=== PATIENT | male | born 1960 | race African-American/Black ===

== ENCOUNTER 2018-11-28 18:19 | Emergency (ER) | payer OTHER ==
[~2018-11-28] VITALS: Ht 172.7 cm; Wt 92.0 kg
[~2018-11-28 18:19] MED LIST: AMLO10TA4; ATOR20TA65 PO; BRIM15DR2 EACHEYE; CLON0.2T; FERR-63 PO; LATA2.5D2 EACHEYE; LISI-186 PO; LOSA50TA41 PO; TIMO15DR12 EACHEYE
[2018-11-28 20:39] VITALS: BP 135/95
== END 2018-11-28 22:30 | disposition left against medical advice (07) ==
LOC: ER 18:19
DX: M25.519 Pain in unspecified shoulder (principal); Z53.21 Procedure and treatment not carried out due to patient leaving prior to being seen by health care provider

== ENCOUNTER 2020-06-29 09:22 | Emergency (ER) | payer MEDICAID, OTHER ==
[~2020-06-29] VITALS: Ht 175.3 cm; Wt 80.0 kg
[~2020-06-29 09:22] MED LIST changes: +LATA2.5D14 EACHEYE; -LATA2.5D2 EACHEYE
[2020-06-29 09:46] LABS: BASOPHILS % 0.4 % (0.0-2.0); EOSINOPHILS % 1.9 % (0.0-5.0); HEMATOCRIT. 41.5 % (42.0-52.0); HEMOGLOBIN. 13.3 g/dL (14.0-18.0); LYMPHOCYTES % 31.1 % (20.0-50.0); MEAN CORPUSCULAR HEMOGLOBIN 29.2 pg (28.0-32.0); MEAN CORPUSCULAR VOLUME 90.7 fL (80.0-94.0); MEAN PLATELET VOLUME 10.9 fl (7.4-10.4); MONOCYTES % 5.6 % (2.0-8.0); PLATELET 159 x1000/uL (130-400); RED BLOOD CELL COUNT 4.57 mill/uL (4.7-6.1); RED CELL DISTRIBUTION WIDTH 12.7 % (11.6-14.6)
[2020-06-29 09:52] LABS: CHLORIDE 105 mEq/L (98-107)
[2020-06-29 09:56] LABS: ETHANOL BLOOD < 10 mg/dL; INR 0.9; PROTHROMBIN TIME 10.2 sec (9.6-11.0)
[2020-06-29 09:59] LABS: LDL CHOLESTEROL 121 mg/dL (5-100)
[2020-06-29 10:00] LABS: CLARITY URINE CLEAR (CLEAR); COLOR URINE YELLOW (YELLOW); KETONES URINE NEGATIVE (NEGATIVE); LEUKOCYTE ESTERASE URINE NEGATIVE (NEGATIVE); NITRITE URINE NEGATIVE (NEGATIVE); OCCULT BLOOD URINE NEGATIVE (NEGATIVE); PROTEIN URINE TRACE (NEGATIVE); SPECIFIC GRAVITY URINE 1.015 (1.005-1.030); UROBILINOGEN URINE 0.2 E.U./dL (0.2-1.0)
[2020-06-29 10:13] LABS: *AMPHETAMINES SCREEN URINE NEGATIVE (NEGATIVE); *BARBITURATES SCREEN URINE NEGATIVE (NEGATIVE); *BENZODIAZEPINES SCREEN URINE NEGATIVE (NEGATIVE); *COCAINE SCREEN URINE NEGATIVE (NEGATIVE); CANNABINOID URINE SCREEN NEGATIVE (NEGATIVE); METHADONE URINE SCREEN NEGATIVE (NEGATIVE); OPIATES URINE SCREEN NEGATIVE (NEGATIVE); PHENCYCLIDINE URINE SCREEN NEGATIVE (NEGATIVE)
[2020-06-29] MEDS ORDERED: IOHEXOL-350 100 ML BOTTLE ONE (10:48)
[2020-06-29] MEDS ORDERED: LORAZEPAM 2MG/ML CPJ IV ONE (15:30)
[2020-06-29 18:06] VITALS: BP 147/104
== END 2020-06-29 18:21 | disposition short-term general hospital (02) ==
LOC: ER 09:22
DX: G45.9 Transient cerebral ischemic attack, unspecified (principal); E11.9 Type 2 diabetes mellitus without complications; I10 Essential (primary) hypertension; Z86.73 Personal history of transient ischemic attack (TIA), and cerebral infarction without residual deficits; Z79.899 Other long term (current) drug therapy
CPT/HCPCS: 36415; 70450; 70496; 70498; 71045; 80053; 80305; 80320; 81003; 82962; 83721; 84484; 85025; 85610; 93005; 96374; 99291; J2060; Q9967; Z7610; 99285; G0480